=== PATIENT | male | born 1985 | race Two or more races ===

== ENCOUNTER 2019-10-17 09:35 | Emergency (ER) | payer OTHER ==
[2019-10-17 09:44] VITALS: BP 126/72
--- NOTE | 2019-10-17 10:47 | ED Physician Documentation ---
History of Present Illness - Stated complaint Stated Complaint: LT SIDE CHEST PX/HIT WITH POLE - Chief complaint Chief Complaint: Trauma Ch/Bk - Additonal information Additional information: This is a 34-year-old male who presents with left lateral rib discomfort. Last patient was trying to open a lock using bolt cutters and the mat cutter slipped and the handle of the bolt cutters impacted his left upper lateral ribs. It some mild soreness afterwards, but over the subsequent days soreness has increased. He does not have pain with inspiration, but when he presses in on the area it is fairly uncomfortable. He was told to come to the emergency department to get checked To make sure he did not have a pneumothorax. He denies shortness of breath. Review of Systems Constitutional: denies: Fever Cardiac: reports: Chest pain / pressure Respiratory: denies: Dyspnea PD PAST MEDICAL HISTORY - Present Medications Home Medications: Ambulatory Orders Medication Instructions Recorded Confirmed Methocarbamol 500 mg PO TID PRN #15 tablet 10/17/19 - Allergies Allergies/Adverse Reactions: Allergies Allergy/AdvReac Type Severity Reaction Status Date / Time No Known Drug Allergies Allergy Verified 10/17/19 09:39 PD ED PE NORMAL - Vitals Vital signs reviewed: Yes - General General: Alert and oriented X 3, No acute distress - HEENT HEENT: PERRL - Neck Neck: Supple, no meningeal sign - Cardiac Cardiac: RRR - Respiratory Respiratory: No respiratory distress, Clear bilaterally, Other (No bruising or deformity of the chest wall. There is mild tenderness to deep palpation on the left upper lateral ribs) - Abdomen Abdomen: Non distended - Derm Derm: Warm and dry - Extremities Extremities: No deformity - Neuro Neuro: Alert and oriented X 3 - Psych Psych: Normal mood, Normal affect Results - Vitals Vitals: Vital Signs - 24 hr 10/17/19 09:40 Temperature 37 C Heart Rate 61 Respiratory 18 Rate Blood Pressure 126/72 O2 Saturation 98 Oxygen O2 Source Room air PD MEDICAL DECISION MAKING - ED course Complexity details: considered differential (Fracture, contusion, pneumothorax, strain) ED course: Patient presents with focal discomfort of his chest where he was hit with the handle of bolt cutters ~4 days ago. His chest wall appears atraumatic on exam, he does have point tenderness in this region. X-ray of the ribs and chest are obtained there is no pneumothorax, no signs of displaced rib fracture. I discussed the diagnosis of contusion versus Occult nondisplaced rib fracture versus strain, discussed supportive care and return precautions, and patient was discharged home. Departure - Departure Disposition: Home, Self Care Clinical Impression: Contusion of rib on left side Condition: Good Instructions: ED Contusion Chest Wall Follow-Up: Your,PCP [Other] Prescriptions: Methocarbamol 500 mg PO TID PRN #15 tablet PRN Reason: Pain Comments: Your chest x-ray did not show signs of a displaced broken rib or collapsed lung. You likely have a bruise or strain of your chest wall. You may take 600 mg of ibuprofen every 6 hours for pain, and 650 mg of Tylenol every 6 hours for pain. If these are not effective you may also use the methocarbamol. If you are developing greatly increasing pain, shortness of breath, or other concerning symptoms return to the emergency department
--- NOTE | 2019-10-17 11:38 | XRAY Report ---
Reason: Left lateral chest trauma Procedure Date: 10/17/2019 Accession Number: [id number] / [id number] Procedure: XR - Ribs w/PA Chest LT CPT Code: Final Report FULL RESULT: EXAM: LEFT RIB RADIOGRAPHY EXAM DATE: 10/17/2019 11:13 AM. CLINICAL HISTORY: Left lateral chest trauma. COMPARISON: None. TECHNIQUE: 1 view of the chest and 2 views of the ribs. FINDINGS: Bones: Normal. No fracture or bone lesion. Lungs: No focal opacities. No pneumothorax. No pleural effusions. Mediastinum: Heart and mediastinal contours are unremarkable. Other: None. IMPRESSION: Normal chest and left rib radiography. [facility]
== END 2019-10-17 12:00 | disposition home or self-care (01) ==
LOC: ED 09:35
DX: S20.20XA Contusion of thorax, unspecified, initial encounter (principal); W20.8XXA Other cause of strike by thrown, projected or falling object, initial encounter; Y93.89 Activity, other specified
CPT/HCPCS: 99283; 99284